=== PATIENT | female | born 1995 | race Two or more races ===

== ENCOUNTER 2019-04-10 20:37 | Observation (INO) | payer MEDICAID ==
[~2019-04-10] VITALS: Ht 157.5 cm; Wt 70.3 kg
[2019-04-10] MEDS ORDERED: PNV1TABL50 MT (23:40)
== END 2019-04-10 23:55 | disposition home or self-care (01) ==
LOC: 8 EST LDRP 20:37
PROVIDERS: ADMIT Obstetrics & Gynecology; ATTEND Obstetrics & Gynecology
DX: O62.9 Abnormality of forces of labor, unspecified (principal); Z3A.40 40 weeks gestation of pregnancy
CPT/HCPCS: 76805; 76818; 99281; G0378